=== PATIENT | male | born 1960 | race African-American/Black ===

== ENCOUNTER 2019-12-19 16:44 | Outpatient (CLI) | payer OTHER ==
--- NOTE | 2019-12-23 21:12 | Cat Scan Report ---
CT ABDOMEN AND PELVIS WITHOUT CONTRAST HISTORY: KIDNEY STONE. COMPARISON: None. TECHNIQUE: CT images of the abdomen and pelvis were obtained without administration of intravenous co ntrast. All CT scans at this location are performed using CT dose reduction for ALARA by means of au tomated exposure control. FINDINGS: Lungs/bones: Lung bases are clear. There are degenerative changes in the spine and pelvis with no ac jamie osseous abnormality. Abdomen/pelvis: There is a 9 mm stone in the mid right ureter with moderate hydronephrosis. Addition al bilateral nonobstructing renal calyceal calculi are present as well as a somewhat linear-appearing stone in the left renal pelvis measuring 1.9 cm in length and 7 mm in width. There is mild collectin g system prominence but no significant inflammatory change. The liver, gallbladder, spleen, pancreas, adrenals, and proximal GI tract appear unremarkable. Urinary bladder is collapsed. Prostate is unremarkable. No pelvic free fluid or acute colonic abnorma lity identified. There are small bilateral fat-containing inguinal hernias. IMPRESSION: 1. Renal stone disease as outlined above, notable for a 9 mm obstructive stone in the mid right urete r with moderate hydronephrosis. Signer Name: James Sethi MD Signed: 12/23/2019 9:08 PM Workstation Name: [id number]
== END 2019-12-19 16:45 | disposition home or self-care (01) ==
LOC: XRAY 16:44 → EDSTATUS 12-23 13:15
PROVIDERS: ATTEND Urology
DX: N13.2 Hydronephrosis with renal and ureteral calculous obstruction (principal)
CPT/HCPCS: 74150

== ENCOUNTER 2020-02-13 05:43 | Day surgery (SDC) | payer OTHER ==
[2020-02-13] MEDS ORDERED: MIDAZOLAM 2 MG/2 ML INJ IV NR (06:00)
[2020-02-13] MEDS ORDERED: LACTATED RINGERS 1,000 ML IV SCH (06:00)
[2020-02-13] MEDS ORDERED: BACTERIOSTATIC SODIUM CHLORIDE 0.9% 30 ML VIAL INFILTRATI ONE (06:22)
--- NOTE | 2020-02-13 07:30 | Anesthesia Day of Surgery ---
Anesthesia Day of Surgery - Day of Surgery Patient Examined: Yes Patient H&P Reviewed: Yes Patient is NPO: Yes
--- NOTE | 2020-02-13 07:30 | Anesthesia Consultation ---
Anesthesia Consult and Med Hx Date of service: 02/13/20 - Airway Anesthetic Teeth Evaluation: Caps (burnett crowns), Bridges (upper front) ROM Head & Neck: Adequate Mental/Hyoid Distance: Adequate Mallampati Class: Class II Intubation Access Assessment: Probably Good - Pre-Operative Health Status ASA Pre-Surgery Classification: ASA2 Proposed Anesthetic Plan: General - Pulmonary Hx Smoking: Yes (quit over 10 years ago) Hx Asthma: No Hx Respiratory Symptoms: No COPD: No Hx Sleep Apnea: No (ALISON PRE SCREEN LOW RISK) - Cardiovascular System Hx Hypertension: No Hx Heart Attack/AMI: No Hx Percutaneous Transluminal Coronary Angioplasty (PTCA): No Hx Cardia Arrhythmia: No - Central Nervous System Hx Seizures: No CVA: No Hx Back Pain: Yes Hx Psychiatric Problems: No - Gastrointestinal Hx Gastroesophageal Reflux Disease: No - Endocrine Hx Renal Disease: Yes (kidney stones) Hx End Stage Renal Disease: No Hx Cirrhosis: No Hx Liver Disease: No Hx Insulin Dependent Diabetes: No Hx Non-Insulin Dependent Diabetes: No Hx Thyroid Disease: No - Hematic Hx Anemia: No Hx Sickle Cell Disease: No - Other Systems Hx Alcohol Use: Yes (BEER not every day) Hx Substance Use: No Hx Cancer: No Hx Obesity: No
[2020-02-13] MEDS ORDERED: ceFAZolin/STERILE WATER 2 GM/20 ML SYRINGE IV NR (08:22)
[2020-02-13] MEDS ORDERED: propofoL 200 MG/20 ML VIAL IV ONE (08:33)
[2020-02-13] MEDS ORDERED: GLYCOPYRROLATE 0.4 MG/2 ML INJ ONE (08:33)
[2020-02-13] MEDS ORDERED: ONDANSETRON 4 MG/2 ML INJ ONE (08:33)
[2020-02-13] MEDS ORDERED: PHENYLEPHRINE/NS 1,000 MCG/10 ML SYRINGE (OR USE) IV ONE (08:33)
[2020-02-13] MEDS ORDERED: dexAMETHasone 20 MG/5 ML VIAL ONE (08:33)
[2020-02-13] MEDS ORDERED: LIDOCAINE MPF (2%) 20 MG/1 ML VIAL 5 ML ONE (08:33)
[2020-02-13] MEDS ORDERED: SUCCINYLCHOLINE CHLORIDE 200 MG/10 ML INJ MDV ONE (08:33)
[2020-02-13] MEDS ORDERED: fentaNYL 100 MCG/2 ML INJ ONE (08:33)
--- NOTE | 2020-02-13 10:31 | Post Operative Note ---
Date of procedure: 02/13/20 Pre-op diagnosis: stones Post-op diagnosis: same Findings: as above Procedure: r ureteral eswl Anesthesia: EROS Surgeon: ABRIL BLAKE Estimated blood loss: none Pathology: none Condition: stable Disposition: PACU
--- NOTE | 2020-02-13 10:32 | Discharge Summary ---
Short Stay Discharge Plan Activity: other (no straining ) Diet: regular Special Instructions: other (inc fluids ) Durable Medical Equipment Needed Upon Discharge: other (has stent ) Additional Instructions: APPOINTMENT - CALL DR CLANCY OFFICE [phone] FOR APPOINTMENT TO BE SEEN IN 7 DAYS. CALL HIS OFFICE IF YOU HAVE ANY QUESTIONS OR CONCERNS RELATED TO YOUR SURGERY. DIET - LOW FAT, LOW SALT, LOW CHOLESTEROL. DRINK 8-10 CUPS OF WATER PER DAY ACTIVITY- NO STRENUOUS ACTIVITIES. TAKE DAILY WALKS DO STRAIN ALL URINE TAKE SEDIMENTS WHEN YOU GO FOR YOUR FOLLOW UP VISIT WITH DR BLAKE Follow up with: PRIMARY CARE, [Primary Care Provider] - 7 Days Forms: Outpatient Surgery DC Inst.
--- NOTE | 2020-02-13 10:59 | Operative Report ---
PREOPERATIVE DIAGNOSES: Bilateral stones, previous stent placement. POSTOPERATIVE DIAGNOSES: Bilateral stones, previous stent placement. PROCEDURE: Right lithotripsy, ureteral. SURGEON: Javon Rousseau MD. ANESTHESIA: General. FINDINGS: This is a gentleman who presented with bilateral stones. Stents were placed. He now presents for treatment of the large 9 mm mid ureteral stone. DESCRIPTION OF PROCEDURE: The patient was brought to the operating room and placed on operating table. Following induction of anesthesia, the stone was well localized, both the AP and oblique image. Shocks were begun at 1 kV, increased to maximum of 9 kV. There was excellent fragmentation. The stone was clearly much smaller than we started with. The patient tolerated the procedure well. Stent was in good position. He was gated part of the time because he had some PVCs. He tolerated the procedure well and brought to recovery in stable condition. Plan will be followup staged procedure, possible ureteroscopy. The other option is open surgery or laparoscopic surgery or percutaneous surgery. This will be discussed. He was brought to recovery in stable condition. JOB# [id number] JIMMY/RORO
[2020-02-13 11:01] VITALS: BP 136/82
--- NOTE | 2020-02-13 11:01 | Post Anesthesia Evaluation ---
- Post Anesthesia Evaluation Patient Participated: Yes Airway Patent: Yes Stable Respiratory Function: Yes Nausea/Vomiting: No Temp > 96.8F: Yes Pain Manageable: Yes Adequeate Hydration: Yes Anesthesia Complications: No
== END 2020-02-13 05:44 | disposition home or self-care (01) ==
LOC: OR 05:43
PROVIDERS: ATTEND Urology
DX: N20.1 Calculus of ureter (principal); F17.210 Nicotine dependence, cigarettes, uncomplicated; Z87.440 Personal history of urinary (tract) infections; Z72.89 Other problems related to lifestyle; Z98.890 Other specified postprocedural states; Z79.899 Other long term (current) drug therapy
CPT/HCPCS: 50590; J0330; J1100; J2250; J2370; J2405; J2704; J3010; J7120

== ENCOUNTER 2020-04-06 08:13 | Day surgery (SDC) | payer OTHER ==
[2020-04-06] MEDS ORDERED: LACTATED RINGERS 1,000 ML ONE (08:59)
[2020-04-06] MEDS ORDERED: ONDANSETRON 4 MG/2 ML INJ IV PRN (09:28)
[2020-04-06] MEDS ORDERED: HYDROmorphone 1 MG/1 ML INJ IV PRN ×2 (09:28)
--- NOTE | 2020-04-06 09:28 | Anesthesia Day of Surgery ---
Anesthesia Day of Surgery - Day of Surgery Patient Examined: Yes Patient H&P Reviewed: Yes Patient is NPO: Yes
--- NOTE | 2020-04-06 09:29 | Anesthesia Consultation ---
Anesthesia Consult and Med Hx Date of service: 04/06/20 - Airway Anesthetic Teeth Evaluation: Chipped ROM Head & Neck: Adequate Mental/Hyoid Distance: Adequate Mallampati Class: Class III Intubation Access Assessment: Probably Good - Pre-Operative Health Status ASA Pre-Surgery Classification: ASA1 Proposed Anesthetic Plan: General - Pulmonary Hx Smoking: Yes (Quit) Hx Asthma: No Hx Respiratory Symptoms: No COPD: No Hx Sleep Apnea: No (ALISON PRE SCREEN LOW RISK) - Cardiovascular System Hx Hypertension: No Hx Heart Attack/AMI: No Hx Percutaneous Transluminal Coronary Angioplasty (PTCA): No Hx Cardia Arrhythmia: No - Central Nervous System Hx Seizures: No CVA: No Hx Back Pain: Yes Hx Psychiatric Problems: No - Gastrointestinal Hx Gastroesophageal Reflux Disease: No - Endocrine Hx End Stage Renal Disease: No Hx Cirrhosis: No Hx Liver Disease: No Hx Insulin Dependent Diabetes: No Hx Non-Insulin Dependent Diabetes: No Hx Thyroid Disease: No - Hematic Hx Anemia: No Hx Sickle Cell Disease: No - Other Systems Hx Alcohol Use: Yes (BEER not every day) Hx Substance Use: No Hx Cancer: No Hx Obesity: No - Additional Comments Anesthesia Medical History Comments: Thai speaking-son present at bedside to translate.
[2020-04-06] MEDS ORDERED: ceFAZolin/STERILE WATER 2 GM/20 ML SYRINGE IV NR (09:39)
[2020-04-06] MEDS ORDERED: LACTATED RINGERS 1,000 ML IV SCH (10:00)
[2020-04-06] MEDS ORDERED: LIDOCAINE MPF (2%) 20 MG/1 ML VIAL 5 ML ONE (10:23)
[2020-04-06] MEDS ORDERED: PHENYLEPHRINE/NS 1,000 MCG/10 ML SYRINGE (OR USE) IV ONE (10:23)
[2020-04-06] MEDS ORDERED: propofoL 200 MG/20 ML VIAL IV ONE (10:23)
[2020-04-06] MEDS ORDERED: dexAMETHasone 20 MG/5 ML VIAL ONE (10:23)
[2020-04-06] MEDS ORDERED: fentaNYL 100 MCG/2 ML INJ ONE (10:23)
[2020-04-06] MEDS ORDERED: ONDANSETRON 4 MG/2 ML INJ ONE (10:23)
[2020-04-06] MEDS ORDERED: SUCCINYLCHOLINE CHLORIDE 200 MG/10 ML INJ MDV ONE (10:30)
[2020-04-06] MEDS ORDERED: IOHEXOL 300 MG/ML 100ML IR ONE (11:00)
--- NOTE | 2020-04-06 12:06 | Operative Report ---
PREOPERATIVE DIAGNOSIS: Bilateral obstructing stones. POSTOPERATIVE DIAGNOSES: Right ureteral stones. Left stone was in the lower pole. PROCEDURE: Cystoscopy, right retrograde, right ureteroscopy with laser of large ureteral stones and removal of left double-J stent. SURGEON: Dr. Rousseau. ANESTHESIA: General. FINDINGS: This is a gentleman who presented with bilateral obstruction, severe hydronephrosis on the right likely a diminished function in the right kidney. He now presents for treatment. Preoperatively, they insisted that the stents be removed. I told him I would not remove the stent immediately on the right because as we were working on, but I would if it looked like the ureter was opened and the stone was in a decent spot and take out the left stent even against my advice, but they insisted that he come out. He does need followup treatment on the left side. This was explained to them in detail. DESCRIPTION OF PROCEDURE: The patient was brought to the operating table. Following induction of anesthesia, placed in lithotomy position, prepped and draped in usual sterile fashion. Cystourethroscopy revealed both stents. The right stent was partially withdrawn and a wire coiled in the kidney. A second wire coiled with a double lumen catheter and ureteroscopy showed a large stone mid to upper ureter. This was lasered into at least 6 pieces. Some of the pieces moved back in the kidney. We followed them up. At this point, a 7 double J coiled in the kidney. The retrograde showed a very dilated system, likely chronic obstruction. The patient tolerated the procedure well. The left stent was removed at the patient's request. He was brought to recovery room. We left the string, so he would not forget to take out the stent in stable condition. JOB# [id number] JIMMY/RORO
--- NOTE | 2020-04-06 12:37 | Discharge Summary ---
Short Stay Discharge Plan Activity: other (no straining ) Weight Bearing Status: Full Weight Bearing Diet: regular Special Instructions: other (inc fluids ) Follow up with: PRIMARY CARE, [Primary Care Provider] - 7 Days ABRIL BLAKE MD [Staff Physician] - 7 Days
--- NOTE | 2020-04-06 12:38 | Post Operative Note ---
Date of procedure: 04/06/20 Pre-op diagnosis: bennett roper Post-op diagnosis: same Findings: as above Procedure: cysto ureteroscopu Anesthesia: GETA Surgeon: ABRIL BLAKE Estimated blood loss: none Pathology: none Condition: stable Disposition: PACU
--- NOTE | 2020-04-06 13:26 | Fluoroscopy Report ---
INTRAOPERATIVE FLUOROSCOPY INDICATION / CLINICAL INFORMATION: RT URETERAL STONE. TECHNIQUE: Intraoperative spot images were obtained during the procedure. FINDINGS: Intraoperative fluoroscopy images for RT URETEROSCOPY, RT URETERAL STONE SEEN. USED HOLIMUM LASER TO BREAK UP. RT RPG, RT STENT EXCHANGE, LT STENT REMOVAL See operative/procedure note by performing physician for full details. Fluoroscopy Time: 1 minute and 2 seconds. Fluoroscopy Images: 5. Signer Name: Prosper Polanco MD Signed: 04/06/2020 1:22 PM Workstation Name: [id number]
--- NOTE | 2020-04-06 13:55 | Post Anesthesia Evaluation ---
- Post Anesthesia Evaluation Patient Participated: Yes Airway Patent: Yes Stable Respiratory Function: Yes Nausea/Vomiting: No Temp > 96.8F: Yes Pain Manageable: Yes Adequeate Hydration: Yes Anesthesia Complications: No Block Receding Appropriately: Not Applicable Patient on Ventilator: No
[2020-04-06 14:33] VITALS: BP 132/72
== END 2020-04-06 08:14 | disposition home or self-care (01) ==
LOC: OR 08:13
PROVIDERS: ATTEND Urology
DX: N20.1 Calculus of ureter (principal); F17.210 Nicotine dependence, cigarettes, uncomplicated; Z79.899 Other long term (current) drug therapy; Z87.440 Personal history of urinary (tract) infections; Z72.89 Other problems related to lifestyle; Z98.890 Other specified postprocedural states
CPT/HCPCS: 52356; 74420; C1758; C1769; C2617; J0330; J0690; J1100; J2370; J2405; J2704; J3010; J7120; Q9967